=== PATIENT | female | born 1975 | race Two or more races ===

== ENCOUNTER → 2024-12-14 | Emergency (ER) | payer OTHER ==
[~2024-12-14] VITALS: Ht 162.6 cm; Wt 74.8 kg
[~2024-12-14] MED LIST: PRENATAL TABLE1 EAC1 PO; ZYRTEC10 MG PO; [UNRECOGNIZED DRUG - OTHER] PO
[2024-12-15 00:45] LABS: BASO % 0.5 % (0.1-1.2); EOS # 0.07 (0.04-0.54); EOS % 0.7 % (0.7-7.0); HEMATOCRIT 43.2 % (34.1-44.9); HEMOGLOBIN 14.9 g/dL (11.2-15.7); LYMPH % 26.8 % (19.3-53.1); MEAN CORPUSCULAR HEMOGLOBIN 29.5 pg (25.6-32.2); MONO # 0.69 (0.24-0.82); MONO % 6.6 % (4.7-12.5); NEUT # 6.79 (1.56-6.13); NEUT % 65.1 % (34.0-71.1); PLATELET COUNT 239 K/uL (163-369); RED BLOOD COUNT 5.05 M/uL (3.93-5.22); RED CELL DISTRIBUTION WIDTH 12.2 % (11.6-14.4)
[2024-12-15 01:34] LABS: ALBUMIN 4.4 gm/dL (3.4-5.0); BILIRUBIN TOTAL 0.76 mg/dL (0.3-1.2); CALCIUM 9.5 mg/dL (8.5-10.1); CREATININE SERUM 0.65 mg/dL (0.55-1.02); GFR 96.09; GLOBULINA 3.8 G/DL (2.4-3.5); POTASSIUM 4.07 mEq/L (3.5-5.1); TOTAL PROTEIN 8.2 gm/dL (6.4-8.2)
== END | disposition home or self-care (01) ==
LOC: ER 19:59
PROVIDERS: Preventive Medicine Public Health & General Preventive Medicine
DX: F41.9 Anxiety disorder, unspecified (principal); R00.2 Palpitations; R07.9 Chest pain, unspecified; R20.0 Anesthesia of skin; Z88.0 Allergy status to penicillin; Z91.013 Allergy to seafood